=== PATIENT | male | born 1985 | race Hispanic/Latino ===

== ENCOUNTER → 2020-02-25 | Outpatient (CLI) | payer OTHER ==
[2020-02-25 10:42] LABS: BASOPHILS # (AUTO) 0.1 (0.0-0.1); BASOPHILS % 0.8 % (0.0-1.0); EOSINOPHILS # (AUTO) 0.1 (0.0-0.4); EOSINOPHILS % 1.6 % (0.0-6.0); HEMATOCRIT 48.9 % (38.2-49.6); HEMOGLOBIN 15.7 g/dL (14.0-18.0); LYMPHOCYTES # (AUTO) 1.9 (1.0-3.2); LYMPHOCYTES % 21.6 % (18.0-39.1); MEAN CORPUSCULAR HEMOGLOBIN 30.3 pg (28-32); MEAN CORPUSCULAR HGB CONC 32.1 g/dL (31-35); MEAN CORPUSCULAR VOLUME 94.2 fL (81-99); MONOCYTES # (AUTO) 0.5 (0.2-0.8); MONOCYTES % 5.4 % (4.4-11.3); NEUTROPHILS % 69.8 % (38.7-80.0); PLATELET COUNT 343 x10e3/uL (140-360); RED BLOOD COUNT 5.19 x10e6/uL (4.3-5.7); RED CELL DISTRIBUTION WIDTH 13.2 % (11.7-14.4)
[2020-02-25 11:07] LABS: ALANINE AMINOTRANSFERASE 41 IU/L (0-55); ALBUMIN 4.2 g/dL (3.5-5.0); ALKALINE PHOSPHATASE 59 IU/L (40-150); AMYLASE 72 U/L (25-125); ANION GAP 17.5 mmol/L (8-16); BILIRUBIN,DIRECT 0.3 mg/dL (0.0-0.5); BLOOD UREA NITROGEN 10 mg/dL (7-26); BUN/CREATININE RATIO 8 (6-25); CALCIUM 10.1 mg/dL (8.4-10.2); CARBON DIOXIDE 27 mmol/L (22-29); CHLORIDE 104 mmol/L (98-107); CREATININE, SERUM 1.19 mg/dL (0.72-1.25); EST GLOMERULAR FILTRATION RATE > 60 ML/MIN (60-); GLUCOSE 105 mg/dL (74-118); POTASSIUM 4.5 mmol/L (3.5-5.1); SODIUM 144 mmol/L (136-145)
--- NOTE | 2020-02-25 15:03 | Diagnostic Imaging Report ---
EXAM: US ABDOMEN COMPLETE DATE: 02/25/2020 2:22 PM INDICATION: Abdominal pain COMPARISON: None TECHNIQUE: Transverse and longitudinal sanchez scale and color doppler sonographic images of the upper abdomen were obtained. FINDINGS: LIVER 17.1 cm in the right midclavicular line. Increased echogenicity of the liver with normal contour, no masses. SPLEEN 11.8 cm in maximum diameter. Normal echogenicity, no masses. GALLBLADDER No gallbladder wall thickening, distension, stone, or pericholecystic fluid. Negative reported sonographic Zaragoza's sign. The gallbladder wall measures 3mm BILE DUCTS No intra nor extra-hepatic biliary dilation. Common bile duct measures 4mm PANCREAS: Visualized portions are normal. RIGHT KIDNEY: 11.5 cm Echogenicity: Normal Collecting System: No hydronephrosis Stones: None Cyst/Mass: None LEFT KIDNEY: 12.0 cm Echogenicity: Normal Collecting System: No hydronephrosis Stones: None Cyst/Mass: None VESSELS: Aorta: Visualized portions are within normal size limits Inferior Vena Cava: Visualized portions are normal Main Portal Vein: 1.2 cm, normal size with hepatopetal flow. FREE FLUID: None IMPRESSION: Diffuse hepatic steatosis. No cholelithiasis or sonographic evidence of cholecystitis. Signed by: Parker Cornell MD on 02/25/2020 3:00 PM
== END ==
LOC: US 10:17
PROVIDERS: ATTEND Family Medicine
DX: R10.11 Right upper quadrant pain (principal)
CPT/HCPCS: 36415; 76700; 80048; 80076; 82150; 85025